=== PATIENT | female | born 1975 | race Caucasian/White ===

== ENCOUNTER → 2017-01-19 | Day surgery (SDC) | payer BC, OTHER ==
[2017-01-02 13:28] VITALS: BMI 40.0
--- NOTE | 2017-01-02 13:58 | PAT Medication Instructions ---
Service Date January 02, 2017. Current Home Medication List Control Pills ( Control Pills), 1 TAB PO QAM Cholecalciferol (Vitamin D), 1 TAB PO QAM Clonazepam (Klonopin), 0.5 MG PO QAM Omeprazole (Prilosec), 40 MG PO QAM Rizatriptan Benzoate (Maxalt), 5 MG PO QAM Sertraline (Zoloft), 1 TAB PO QAM Sumatriptan Succinate (Imitrex), 50 MG PO PRN Medication Instructions For Your Scheduled Surgery - Check with surgeon for instructions: Control Pills ( Control Pills), 1 TAB PO QAM - Hold the following medications the morning of surgery: Cholecalciferol (Vitamin D), 1 TAB PO QAM - Take the following medications the morning of surgery with a sip of water: Sumatriptan Succinate (Imitrex), 50 MG PO PRN (if needed) Sertraline (Zoloft), 1 TAB PO QAM Rizatriptan Benzoate (Maxalt), 5 MG PO QAM Clonazepam (Klonopin), 0.5 MG PO QAM Omeprazole (Prilosec), 40 MG PO QAM - Take the following medications as scheduled the night before surgery: Sumatriptan Succinate (Imitrex), 50 MG PO PRN (if needed) If you have any questions please call us at [phone] or [phone] or [phone]
[2017-01-02 14:57] LABS: BASO % 0.3 %; BASO ABS # 0.02 K/uL (0-0.2); COMPLETE YES; EOS % 1.2 %; HEMATOCRIT 39.7 % (37-47); IG% 0.1 %; LYMPH % 33.1 %; LYMPH ABS # 2.59 K/uL (1.2-3.4); MEAN CELL VOLUME 91.3 fL (80-100); MEAN CORPUSCULAR HEMOGLOBIN 30.3 pg (25-34); MEAN CORPUSCULAR HGB CONC 33.2 g/dl (32-36); MEAN PLATELET VOLUME 9.8 fL (7.4-10.4); MONO % 8.6 %; NEUT % 56.7 %; PLATELET COUNT 244 K/uL (130-400); RED BLOOD COUNT 4.35 M/uL (4.2-5.4); WHITE BLOOD COUNT 7.82 K/uL (4.8-10.8)
[2017-01-02 15:08] LABS: BUN/CREATININE RATIO 13.5 (10-20); CREATININE 0.93 mg/dl (0.60-1.20)
[2017-01-02 15:15] LABS: CALCIUM 8.8 mg/dl (8.5-10.1)
[~2017-01-19] VITALS: Ht 162.6 cm; Wt 105.4 kg
[~2017-01-19] MED LIST: ACET-749 PO; ATROPINE SULFATE 0.1 MG/ML 5ML SYR IV PRN; BCPILLS PO; BUPIVACAINE 0.5 % 5 MG/1 ML MPF 30ML VIAL ONE; CHOL1TAB42 PO; CLON0.5T3 PO; DEXAMETHASONE SOD INJ 4 MG/ML VIAL ONE; EpHEDrine SULFATE INJ 50 MG/ML AMP IV PRN; FENTANYL CITRATE INJ 50 MCG/1 ML 2 ML VIAL ONE; GLYCOPYRROLATE INJ 0.2 MG/ML VIAL ONE; HYDROCODONE/ACETAMOPHEN 5/325MG TAB PO PRN; HYDROmorphone INJ 1 MG/ML SYR ONE; HYDROmorphone INJ 2 MG/ML SYR/VIAL IV PRN; HYDROmorphone INJ 2 MG/ML SYR/VIAL ONE; IBUPROFEN 600 MG TAB PO PRN; KETOROLAC TROMETHAMINE 30 MG/ML VIAL IV. PRN; KETOROLAC TROMETHAMINE 30 MG/ML VIAL ONE; LACTATED RINGER'S 1000ML 1,000 ML IV SCH; LIDOCAINE HCL 2% 2 ML VIAL (20MG/ML) ONE; MIDAZOLAM HCL 1 MG/ML 2ML VIAL ONE; MoRPHine SULFATE 2 MG/ML CARP IV PRN; NEOSTIGMINE METHYLSULFATE 5 MG/5 ML SYR ONE; ONDANSETRON INJ 2 MG/ML 2 ML VIAL IV PRN; ONDANSETRON INJ 2 MG/ML 2 ML VIAL ONE; OXYCODONE/ACETAMINOPHEN 5-325 TAB PO PRN; PHENYLEPHRINE 100MCG/ML 5ML SYR IV PRN; PRLSR20 PO; PROPOFOL IV EMULSION 10 MG/ML 20 ML VIAL IV ONE; RIZA5TAB10 PO; ROCURONIUM BROMIDE 10 MG/ML 5 ML VIAL ONE; SERT-234 PO; SODIUM CHLORIDE 0.9% 1000ML 1,000 ML IV SCH; SUMA50TA15 PO
[2017-01-19 12:23] VITALS: BP 117/73; PULSE 84; TEMP 36.9; O2SAT 96; Ht 162.6 cm; Wt 105.4 kg
--- NOTE | 2017-01-19 13:10 | History & Physical Bridge Note ---
H&P Re-Evaluation Bridge Note: I have examined the patient, reviewed the History & Physical and in the interval since the performance of the History & Physical I have noted the following changes of clinical significance: No changes noted
--- NOTE | 2017-01-19 14:35 | [facility] Post Operative Brief Note ---
Immediate Operative Summary Operative Date Jan 19, 2017. Pre-Operative Diagnosis Elective sterilization Post-Operative Diagnosis Elective sterilization Procedure(s) Performed Laproscopic Tubal Ligation with Filshie Clips Surgeon Dr. Erik Hearn Balance Truer Surgeon(s) Dr. Germain Coelho Estimated Blood Loss 5mL Findings normal uterus tubes and ovaries bilaterally Fluids (cc crystalloids) 1000 ml Specimens none per surgeon Drains none Anesthesia GET Disposition Recovery Room / PACU
--- NOTE | 2017-01-19 14:38 | Discharge Instructions ---
Discharge Instructions Date of Service Jan 19, 2017. Admission Reason for Admission: Voluntary Sterilization, High Bmi Discharge Discharge Diagnosis / Problem: voluntary sterilization Discharge Goals Goal(s): Routine recovery after surgery Activity Recommendations Activity Limitations: as noted below Lifting Limitations: no more than 10 pounds Exercise/Sports Limitations: as tolerated May Resume Sexual Activity: after follow-up appointment Shower/Bathe: no limitations Driving or Machine Use: resume 1 day after discharge . Instructions / Follow-Up Instructions / Follow-Up ACTIVITY RECOMMENDATIONS: * Avoid tampons, douching, hot tubs, pools, and intercourse until bleeding has stopped. * May shower as usual. * No strenuous activity for 24-48 hours. After 24-48 hours, you can do anything you feel like doing (driving and sports are okay). RETURN TO SCHOOL/WORK: * You may return to school or work after 24 hours unless specified by your physician. DIET: * Resume previous diet. MEDICATIONS: Resume previous medications unless instructed otherwise by your surgeon. Ibuprofen 200mg 2-3 tablets every 4-6 hours as needed --OR-- Aleve 2 tablets every 8-12 hours as needed for post-operative discomfort Medications are over the counter. Tylenol may be used if above medications are contraindicated or not preferred. Medication should be taken with food or milk. do not take on an empty stomach. SPECIAL CARE INSTRUCTIONS: * Check temperature twice daily for one week. Report any elevation over 101 degrees. * Call office if you experience increased pelvic pain or discomfort not relieved by pain medicine, if you have foul smelling vaginal discharge, if you have bleeding that is heavier than a normal menstrual flow. If you are changing a maxi pad every 1- 2 hours, this is too heavy. vaginal spotting is normal for 1-2 weeks. FOLLOW UP VISIT: Call your doctor's office for a post-operative visit. Current Hospital Diet Patient's current hospital diet: Discharge Diet Recommended Diet: Regular Diet Fluid Restriction: None Procedures Procedures Performed: Laproscopic Tubal Ligation with Filshie Clips Pending Studies Studies pending at discharge: no Medical Emergencies . Who to Call and When: Medical Emergencies: If at any time you feel your situation is an emergency, please call 911 immediately. . Non-Emergent Contact Non-Emergency issues call your: Primary Care Provider . . "Provider Documentation" section prepared by Scooby Hearn. . VTE Core Measure Inpt VTE Proph given/why not?: Treatment not indicated
--- NOTE | 2017-01-19 14:43 | Anesthesiology Progress Note ---
Anesthesia Post Op Note Date & Time Jan 19, 2017 at 14:42 Vital Signs Pain Intensity: 0 Vital Signs Past 12 Hours Date Time Temp Pulse Resp B/P (MAP) Pulse Ox O2 Delivery O2 Flow Rate FiO2 01/19/17 12:23 36.9 84 18 117/73 (88) 96 Room Air Notes Mental Status: alert / awake / arousable, participated in evaluation Pt Amnestic to Procedure: Yes Nausea / Vomiting: adequately controlled Pain: adequately controlled Airway Patency, RR, SpO2: stable & adequate BP & HR: stable & adequate Hydration State: stable & adequate Anesthetic Complications: no major complications apparent
[2017-01-19 15:30] VITALS: BP 150/92; PULSE 88; TEMP 37; O2SAT 98
[2017-01-19 16:00] VITALS: BP 169/93; PULSE 75; O2SAT 97
[2017-01-19 16:30] VITALS: BP 157/88; PULSE 86; O2SAT 100
--- NOTE | 2017-01-20 03:52 | OPERATIVE REPORT ---
DATE OF ADMISSION: 01/19/2017 PREOPERATIVE DIAGNOSIS: Voluntary sterilization. POSTOPERATIVE DIAGNOSIS: Same. PROCEDURE: Laparoscopic tubal ligation with Filshie clips. SURGEON: Dr. Hearn. PHOTOCOMPOSING MACHINE OPERATOR: Dr. Coelho. ANESTHESIA: General endotracheal. COMPLICATIONS: None. ESTIMATED BLOOD LOSS: 5 mL. CLINICAL HISTORY: The patient is a 41-year-old white female, para 1-0-0-1 who presents for a voluntary sterilization by laparoscopic tubal ligation with Filshie clips. The patient was given informed consent in the office including risks, benefits and alternatives to the procedure. A timeout was called prior to the start of the procedure. DESCRIPTION OF PROCEDURE: After satisfactory general endotracheal anesthesia, the patient was prepped and draped in usual sterile fashion using the dorsal lithotomy position. A catheter was then used to empty the bladder. Exam under anesthesia revealed the uterus to be anteverted and no adnexal masses. A weighted speculum was then placed in the posterior vault. An Allis clamp was then used to grab the anterior lip of the cervix for uterine manipulation. Attention was then directed abdominally where approximately 5 mL of 0.5% Marcaine were instilled infraumbilically and suprapubically in the midline and #11 knife blade was then used to make a stab wound infraumbilical. Veress needle was placed, tested with hand drop saline, and approximately 3.5 L of carbon dioxide gas was then instilled creating an artificial pneumoperitoneum. Veress needle was withdrawn. The incision was widened to approximately 1 cm. An 11 mm trocar was inserted under direct visualization with laparoscope. The contents of the pelvic cavity were visualized. The upper abdomen and gallbladder, liver edge were. Smooth. Uterus, tubes, ovaries bilaterally were found to be within normal limits and contained no lesions. A second midline suprapubic incision was made, and the 1 mm probe was then inserted under direct visualization. Filshie clip was then inserted and the tubes were serially grasped and then clamped with Filshie clips, 2 clips on each side. This was documented with video still photography. At the end of the procedure, all remaining instruments were removed. The air was then allowed to escape. 0 Vicryl suture was used to close the fascia on both incisions. Then, a 3-0 Monocryl suture was then used to close both incisions. Steri-Strips were applied. The vaginal instruments were all removed. The patient was now placed supine on a stretcher. The final sponge, needle and instrument count was found to be correct. EBL 5 mL. The patient was taken to recovery room in stable condition. [place]
== END | disposition home or self-care (01) ==
LOC: C.ACU 11:40
PROVIDERS: ATTEND Obstetrics & Gynecology
DX: Z30.2 Encounter for sterilization (principal); K21.9 Gastro-esophageal reflux disease without esophagitis; F32.9 Major depressive disorder, single episode, unspecified; Z82.49 Family history of ischemic heart disease and other diseases of the circulatory system

== ENCOUNTER 2017-01-25 09:05 | Emergency (ER) | payer BC ==
[~2017-01-25] VITALS: Ht 162.6 cm; Wt 106.3 kg
[~2017-01-25 09:05] MED LIST changes: -ATROPINE SULFATE 0.1 MG/ML 5ML SYR IV PRN; -BCPILLS PO; -BUPIVACAINE 0.5 % 5 MG/1 ML MPF 30ML VIAL ONE; -DEXAMETHASONE SOD INJ 4 MG/ML VIAL ONE; -EpHEDrine SULFATE INJ 50 MG/ML AMP IV PRN; -FENTANYL CITRATE INJ 50 MCG/1 ML 2 ML VIAL ONE; -GLYCOPYRROLATE INJ 0.2 MG/ML VIAL ONE; -HYDROCODONE/ACETAMOPHEN 5/325MG TAB PO PRN; -HYDROmorphone INJ 1 MG/ML SYR ONE; -HYDROmorphone INJ 2 MG/ML SYR/VIAL IV PRN; -HYDROmorphone INJ 2 MG/ML SYR/VIAL ONE; -IBUPROFEN 600 MG TAB PO PRN; -KETOROLAC TROMETHAMINE 30 MG/ML VIAL IV. PRN; -KETOROLAC TROMETHAMINE 30 MG/ML VIAL ONE; -LACTATED RINGER'S 1000ML 1,000 ML IV SCH; -LIDOCAINE HCL 2% 2 ML VIAL (20MG/ML) ONE; -MIDAZOLAM HCL 1 MG/ML 2ML VIAL ONE; -MoRPHine SULFATE 2 MG/ML CARP IV PRN; -NEOSTIGMINE METHYLSULFATE 5 MG/5 ML SYR ONE; -ONDANSETRON INJ 2 MG/ML 2 ML VIAL IV PRN; -ONDANSETRON INJ 2 MG/ML 2 ML VIAL ONE; -OXYCODONE/ACETAMINOPHEN 5-325 TAB PO PRN; -PHENYLEPHRINE 100MCG/ML 5ML SYR IV PRN; -PROPOFOL IV EMULSION 10 MG/ML 20 ML VIAL IV ONE; -ROCURONIUM BROMIDE 10 MG/ML 5 ML VIAL ONE; -SODIUM CHLORIDE 0.9% 1000ML 1,000 ML IV SCH
[2017-01-25 09:12] VITALS: TEMP 36.9; Ht 162.6 cm; Wt 106.3 kg
--- NOTE | 2017-01-25 10:03 | EMERGENCY ROOM VISIT NOTE ---
History Report prepared by Leonidas: Malou Serrano Under the Supervision of: Dr. Carmenza Landaverde M.D. First contact with patient: 09:46 Chief Complaint: URINARY SYMPTOMS Stated Complaint: CRAMPING, BLEEDING, PAIN Nursing Triage Summary: Pt had tubal ligation on Sunday Pt reports "it takes concentration to pee" Pt reports peeing frequently and feels a lot of pressure "It feels like I can't totally empty my bladder" History of Present Illness The patient is a 41 year old female who presents to the Emergency Room with complaints of constant urinary symptoms beginning 6 days ago. The patient states that she had a tubal ligation 6 days ago and has been having trouble urinating since the procedure. She reports that after the surgery she was not able to urinate and had to be catheterized but since then she has been able to urinate. She complains of her bladder feeling full, difficulty urinating, slow urination, urinary frequency, abdominal cramping, and vaginal bleeding that is dark and clotting. The patient states that she called [facility] yesterday and spoke to the nurses there about her symptoms. They suggested that she should go to the ED if her symptoms persisted. She denies any fever, vomiting, and changes in eating or drinking. The patient states that she is not prone to UTIs. Source of History: patient Onset: 6 days ago Position: other (urinary) Quality: other (slow/difficult) Timing: constant Associated Symptoms: No fevers, No vomiting Note: She complains of her bladder feeling full, difficulty urinating, slow urination , urinary frequency, abdominal cramping, and vaginal bleeding that is dark and clotting. She denies any changes in eating or drinking. Review of Systems See HPI for pertinent positives & negatives. A total of 10 systems reviewed and were otherwise negative. Past Medical & Surgical Surgical Problems: (1) H/O tubal ligation Family History No pertinent family history stated. Social History Smoking Status: Former Smoker Marital Status: Housing Status: lives with significant other Occupation Status: employed Current/Historical Medications Scheduled Cholecalciferol (Vitamin D), 1 TAB PO QAM Clonazepam (Klonopin), 0.5 MG PO QAM Omeprazole (Prilosec), 40 MG PO QAM Rizatriptan Benzoate (Maxalt), 5 MG PO QAM Sertraline (Zoloft), 1 TAB PO QAM Sumatriptan Succinate (Imitrex), 50 MG PO PRN Allergies Coded Allergies: No Known Allergies (Unverified , 01/19/17) Physical Exam Vital Signs Date Time Temp Pulse Resp B/P (MAP) Pulse Ox O2 Delivery O2 Flow Rate FiO2 01/25/17 13:51 67 18 130/74 99 Room Air 01/25/17 13:00 74 18 127/68 98 Room Air 01/25/17 11:10 79 16 130/74 99 Room Air 01/25/17 09:12 36.9 113 18 116/71 97 Room Air Physical Exam Vital signs reviewed. General: Well-appearing, in no significant distress. HEENT: No scleral icterus, PERRLA, neck supple. Atraumatic. Cardiovascular: Regular rate and rhythm, no extra sounds. Pulmonary: Clear to auscultation bilaterally, normal work of breathing. Abdomen: Soft, mild suprapubic tenderness, nondistended, positive bowel sounds. Musculoskeletal: Atraumatic, no peripheral edema. Neurologic: Patient awake alert and oriented x 3 Skin: Warm, dry, no rash Medical Decision & Procedures ER Provider Diagnostic Interpretation: US results as stated below per my review and radiologist interpretation: ULTRASOUND OF THE PELVIS FINDINGS: Uterus: The uterus is normal in size and echotexture, measuring 9.3 x 4.3 x 4.3 cm. A section scar is suggested. Small Nabothian cysts are noted in the cervix. Endometrium: The endometrium is normal in appearance, and the endometrial stripe is normal in thickness measuring up to 0.3 cm. Ovaries: The ovaries are normal in size and morphology. The right ovary measures 3.3 x 3.1 x 3.3 cm and the left ovary measures 2.8 x 1.8 x 2.6 cm. There are bilateral ovarian follicles. Normal Doppler waveforms are shown within both ovaries. Pelvis: There is no free fluid in the cul-de-sac. No concerning adnexal lesion is seen. IMPRESSION: No acute sonographic abnormality is identified in the pelvis. Electronically signed by: Yosef Queen M.D. 01/25/2017 12:33 PM Dictated Date/Time: 01/25/2017 12:31 PM Laboratory Results 01/25/17 12:40 Red Blood Count 4.21, Mean Corpuscular Volume 90.3, Mean Corpuscular Hemoglobin 30.9, Mean Corpuscular Hemoglobin Concent 34.2, Mean Platelet Volume 9.3, Neutrophils (%) (Auto) 57.0, Lymphocytes (%) (Auto) 29.7, Monocytes (%) (Auto) 11.2, Eosinophils (%) (Auto) 1.6, Basophils (%) (Auto) 0.4, Neutrophils # (Auto ) 3.80, Lymphocytes # (Auto) 1.99, Monocytes # (Auto) 0.75, Eosinophils # (Auto ) 0.11, Basophils # (Auto) 0.03 01/25/17 12:40 Test 01/25/17 10:20 01/25/17 12:40 Urine Color YELLOW Urine Appearance CLEAR (CLEAR) Urine pH 5.5 (4.5-7.5) Urine Specific Hardwick 1.018 (1.000-1.030) Urine Protein NEG (NEG) Urine Glucose (UA) NEG (NEG) Urine Ketones NEG (NEG) Urine Occult Blood TRACE (NEG) Urine Nitrite NEG (NEG) Urine Bilirubin NEG (NEG) Urine Urobilinogen NEG (NEG) Urine Leukocyte Esterase NEG (NEG) Urine WBC (Auto) 1-5 /hpf (0-5) Urine RBC (Auto) 0-4 /hpf (0-4) Urine Hyaline Casts (Auto) 1-5 /lpf (0-5) Urine Epithelial Cells (Auto) 10-20 /lpf (0-5) Urine Bacteria (Auto) NEG (NEG) White Blood Count 6.69 K/uL (4.8-10.8) Red Blood Count 4.21 M/uL (4.2-5.4) Hemoglobin 13.0 g/dL (12.0-16.0) Hematocrit 38.0 % (37-47) Mean Corpuscular Volume 90.3 fL (80-100) Mean Corpuscular Hemoglobin 30.9 pg (25-34) Mean Corpuscular Hemoglobin Concent 34.2 g/dl (32-36) Platelet Count 229 K/uL (130-400) Mean Platelet Volume 9.3 fL (7.4-10.4) Neutrophils (%) (Auto) 57.0 % Lymphocytes (%) (Auto) 29.7 % Monocytes (%) (Auto) 11.2 % Eosinophils (%) (Auto) 1.6 % Basophils (%) (Auto) 0.4 % Neutrophils # (Auto) 3.80 K/uL (1.4-6.5) Lymphocytes # (Auto) 1.99 K/uL (1.2-3.4) Monocytes # (Auto) 0.75 K/uL (0.11-0.59) Eosinophils # (Auto) 0.11 K/uL (0-0.5) Basophils # (Auto) 0.03 K/uL (0-0.2) RDW Standard Deviation 41.3 fL (36.4-46.3) RDW Coefficient of Variation 12.5 % (11.5-14.5) Immature Granulocyte % (Auto) 0.1 % Immature Granulocyte # (Auto) 0.01 K/uL (0.00-0.02) Anion Gap 6.0 mmol/L (3-11) Est Creatinine Clear Calc Drug Dose 110.9 ml/min Estimated GFR () 106.0 Estimated GFR (Non- 91.5 BUN/Creatinine Ratio 17.2 (10-20) Calcium Level 8.1 mg/dl (8.5-10.1) Total Bilirubin 0.3 mg/dl (0.2-1) Direct Bilirubin < 0.1 mg/dl (0-0.2) Aspartate Amino Transf (AST/SGOT) 16 U/L (15-37) Alanine Aminotransferase (ALT/SGPT) 19 U/L (12-78) Alkaline Phosphatase 86 U/L (45-117) Total Protein 6.9 gm/dl (6.4-8.2) Albumin 3.6 gm/dl (3.4-5.0) Laboratory results per my review. ED Course 0945: Past medical records reviewed. The patient was evaluated in room B4. A complete history and physical examination was performed. 1312: I reevaluated and updated the patient. We are awaiting the lab results. 1357: Upon reevaluation, the patient appeared to have improvement of her symptoms. I discussed findings with the patient. She verbalized agreement of the treatment plan. The patient was discharged home. Medical Decision Differential diagnosis includes urinary retention, UTI, intrapelvic bleeding, ovarian cyst, post-surgical urinary complication, medication effect. Medication Reconciliation: I attest that I have personally reviewed the patient' s current medication list. Blood Pressure Screening: Patient was found to have normal blood pressure on screening and does not require follow-up. This pt was evaluated and appeared to be in no distress. IV access was obtained and lab work was drawn. Bladder scan is significant for ~250 ml urine , pt voided for 300ml. UA is negative. Lab work is normal. Pt was d/w Dr Coelho, system sales consultant for Dr Hearn of [facility]. He agrees with plan for oupt management. An appt was made with Dr Hearn is f/u for pt. She will return to the ED for worsening of symptoms or any medical concerns. Impression Primary Impression: Symptoms involving urinary system Scribe Attestation The scribe's documentation has been prepared under my direction and personally reviewed by me in its entirety. I confirm that the note above accurately reflects all work, treatment, procedures, and medical decision making performed by me. Departure Information Dispostion Home / Self-Care Referrals Jeison Gilbert M.D. (PCP) Forms HOME CARE DOCUMENTATION FORM, IMPORTANT VISIT INFORMATION Patient Instructions My [facility] Additional Instructions Diagnosis: Urinary symptoms Please follow-up with Dr. Hearn as scheduled by case management. Tylenol 650 mg every 6 hours as needed for pain. Drink plenty of water. Return to the ER for worsening of symptoms or any medical concerns.
[2017-01-25 10:48] LABS: URINE APPEARANCE CLEAR (CLEAR); URINE BILIRUBIN NEG (NEG); URINE COLOR YELLOW; URINE NITRITE NEG (NEG); URINE PH 5.5 (4.5-7.5); URINE SPECIFIC GRAVITY 1.018 (1.000-1.030); UROBILINOGEN NEG (NEG); ZZUR CULT IF INDIC CLEAN CATCH NO
[2017-01-25 10:52] LABS: MANUAL MICROSCOPIC REQUIRED? NO; REVIEW REQ? NO
--- NOTE | 2017-01-25 12:34 | DIAGNOSTIC IMAGING REPORT ---
ULTRASOUND OF THE PELVIS CLINICAL HISTORY: Urinary retention. Pelvic discomfort. Recent pelvic surgery. COMPARISON STUDY: No priors. TECHNIQUE: Real-time, grayscale, and color flow sonography of the pelvis is performed both transabdominally and endovaginally. Images are reviewed in the transverse and longitudinal planes. FINDINGS: Uterus: The uterus is normal in size and echotexture, measuring 9.3 x 4.3 x 4.3 cm. A section scar is suggested. Small Nabothian cysts are noted in the cervix. Endometrium: The endometrium is normal in appearance, and the endometrial stripe is normal in thickness measuring up to 0.3 cm. Ovaries: The ovaries are normal in size and morphology. The right ovary measures 3.3 x 3.1 x 3.3 cm and the left ovary measures 2.8 x 1.8 x 2.6 cm. There are bilateral ovarian follicles. Normal Doppler waveforms are shown within both ovaries. Pelvis: There is no free fluid in the cul-de-sac. No concerning adnexal lesion is seen. IMPRESSION: No acute sonographic abnormality is identified in the pelvis. Electronically signed by: Yosef Queen M.D. 01/25/2017 12:33 PM Dictated Date/Time: 01/25/2017 12:31 PM
[2017-01-25 12:51] LABS: BASO % 0.4 %; BASO ABS # 0.03 K/uL (0-0.2); COMPLETE YES; EOS % 1.6 %; IG% 0.1 %; LYMPH % 29.7 %; LYMPH ABS # 1.99 K/uL (1.2-3.4); MEAN CELL VOLUME 90.3 fL (80-100); MEAN CORPUSCULAR HEMOGLOBIN 30.9 pg (25-34); MEAN CORPUSCULAR HGB CONC 34.2 g/dl (32-36); MEAN PLATELET VOLUME 9.3 fL (7.4-10.4); MONO % 11.2 %; PLATELET COUNT 229 K/uL (130-400); RED BLOOD COUNT 4.21 M/uL (4.2-5.4); WHITE BLOOD COUNT 6.69 K/uL (4.8-10.8)
[2017-01-25 13:14] LABS: BLOOD UREA NITROGEN 14 mg/dl (7-18); BUN/CREATININE RATIO 17.2 (10-20); CALCIUM 8.1 mg/dl (8.5-10.1); CARBON DIOXIDE 27 mmol/L (21-32); CHLORIDE 109 mmol/L (98-107); CREATININE 0.81 mg/dl (0.60-1.20); GLUCOSE 85 mg/dl (70-99); POTASSIUM 4.4 mmol/L (3.5-5.1); SODIUM 142 mmol/L (136-145)
[2017-01-25 13:17] LABS: ALKALINE PHOSPHATASE 86 U/L (45-117); ALT/SGPT 19 U/L (12-78); AST/SGOT 16 U/L (15-37)
[2017-01-25 13:51] VITALS: BP 130/74; PULSE 67; O2SAT 99
== END 2017-01-25 14:08 | disposition home or self-care (01) ==
LOC: C.EDB 09:06
DX: R39.9 Unspecified symptoms and signs involving the genitourinary system (principal); Z98.51 Tubal ligation status; Z87.891 Personal history of nicotine dependence; Z79.899 Other long term (current) drug therapy